=== PATIENT | female | born 1950 | race Hispanic/Latino ===

== ENCOUNTER 2017-08-28 05:57 | Emergency (ER) | payer MEDICARE ==
[2017-08-28] MEDS ORDERED: ASPIRIN 325 MG TABLET ONE (06:05)
[2017-08-28] MEDS ORDERED: NITROGLYCERIN 1GM/1 INCH PACKET TD ONE (06:05)
[2017-08-28 06:13] LABS: BASOPHILS % (AUTO) 0.8 % (0.0-5.0); EOSINOPHILS % (AUTO) 1.3 % (0.0-8.0); HEMATOCRIT 38.1 % (36-48); LYMPHOCYTES % (AUTO) 33.2 % (21.0-51.0); MEAN CORPUSCULAR HEMOGLOBIN 30.6 pg (27.0-33.0); MEAN CORPUSCULAR HGB CONC 33.6 g/dL (32.0-36.0); MEAN CORPUSCULAR VOLUME 90.9 fL (79-99); MONOCYTES % (AUTO) 10.8 % (3.0-13.0); NEUTROPHILS % (AUTO) 53.9 % (40.0-77.0); NUCLEATED RED BLOOD CELLS 0.1 % (0.0-0.19); PLATELET COUNT (AUTO) 220 K/uL (130-400); RED BLOOD CELL COUNT(AUTO) 4.19 MIL/uL (4.00-5.50); RED CELL DISTRIBUTION WIDTH 14.5 % (11.0-15.5); WHITE BLOOD COUNT (AUTO) 5.3 K/uL (4.8-10.8)
[2017-08-28] MEDS ORDERED: SODIUM CHLORIDE 0.9% 500ML 500 ML IV ONE (06:13)
[2017-08-28 06:44] LABS: B-TYPE NATRIURETIC PEPTIDE 50 pg/mL (0-100)
[2017-08-28] MEDS ORDERED: ALPRAZOLAM 0.25 MG TABLET ONE (06:59)
[2017-08-28 07:13] LABS: ALANINE AMINOTRANSFERASE 21 U/L (12-78); ALBUMIN 3.2 g/dL (3.5-5.0); ASPARTATE AMINOTRANSFERASE 23 U/L (10-37); BILIRUBIN,DIRECT < 0.1 mg/dL (0.0-0.3); BILIRUBIN,TOTAL 0.3 mg/dL (0.2-1.0); CARBON DIOXIDE 26 mmol/L (21-32); CHLORIDE 107 mmol/L (101-111); CREATINE KINASE, TOTAL 61 U/L (21-232); CREATININE 0.7 mg/dL (0.5-1.5); GLOMERULAR FILTR. RATE CALC 89 mL/min (>60); GLUCOSE,RANDOM 103 mg/dL (70-105); LIPASE 129 U/L (114-286); POTASSIUM 3.7 mmol/L (3.5-5.1); SODIUM SERUM 141 mmol/L (136-145); TOTAL PROTEIN, SERUM 7.1 g/dL (6.0-8.3); UREA NITROGEN, BLOOD 21 mg/dL (7-18)
== END 2017-08-28 07:28 | disposition home or self-care (01) ==
LOC: EDH 05:57
DX: R07.9 Chest pain, unspecified (principal); F41.9 Anxiety disorder, unspecified; I10 Essential (primary) hypertension; Z88.1 Allergy status to other antibiotic agents; Z88.8 Allergy status to other drugs, medicaments and biological substances
CPT/HCPCS: 36415; 71045; 80048; 80076; 82550; 83690; 83880; 84484; 85025; 93005; 96360; 99285; J7040

== ENCOUNTER → 2017-09-12 | Outpatient (CLI) | payer MEDICARE | END | disposition home or self-care (01) | LOC: SHCH 09:39 | PROVIDERS: ATTEND Internal Medicine Cardiovascular Disease | DX: I48.91 Unspecified atrial fibrillation (principal) | CPT/HCPCS: 93306 ==

== ENCOUNTER → 2017-12-13 | Outpatient (CLI) | payer MEDICARE ==
[~2017-12-13] MED LIST: IOPAMIDOL-370 100 ML VIAL IV ONE; IOPAMIDOL-370 75 ML VIAL IV ONE
== END | disposition home or self-care (01) ==
LOC: OIH 09:19
PROVIDERS: ATTEND Internal Medicine
DX: K44.9 Diaphragmatic hernia without obstruction or gangrene (principal); E27.9 Disorder of adrenal gland, unspecified
CPT/HCPCS: 74178; Q9967

== ENCOUNTER → 2018-08-21 | Outpatient (CLI) | payer MEDICARE | END | disposition home or self-care (01) | LOC: RAH 15:22 | PROVIDERS: ATTEND Nurse Practitioner Family | DX: M19.021 Primary osteoarthritis, right elbow (principal); M77.8 Other enthesopathies, not elsewhere classified | CPT/HCPCS: 73221 ==

== ENCOUNTER 2018-09-21 04:14 | Observation (INO) | payer MEDICARE ==
[2018-09-21 05:22] LABS: APPEARANCE,URINE Clear (CLEAR); BILIRUBIN,URINE Negative (NEGATIVE); COLOR,URINE Yellow (YELLOW); GLUCOSE, URINE (UA) Negative (NEGATIVE); KETONES,URINE Negative (NEGATIVE); LEUKOCYTE ESTERASE ,URINE Trace (NEGATIVE); NITRATE,URINE Negative (NEGATIVE); OCCULT BLOOD,URINE Negative (NEGATIVE); PROTEIN,URINE Negative (NEGATIVE)
[2018-09-21 05:24] LABS: BASOPHILS % (AUTO) 0.8 % (0.0-5.0); EOSINOPHILS % (AUTO) 2.9 % (0.0-8.0); HEMATOCRIT 35.4 % (36-48); LYMPHOCYTES % (AUTO) 37.6 % (21.0-51.0); MEAN CORPUSCULAR HEMOGLOBIN 30.3 pg (27.0-33.0); MEAN CORPUSCULAR HGB CONC 32.9 g/dL (32.0-36.0); MONOCYTES % (AUTO) 11.2 % (3.0-13.0); NEUTROPHILS % (AUTO) 47.5 % (40.0-77.0); PLATELET COUNT (AUTO) 180 K/uL (130-400); RED BLOOD CELL COUNT(AUTO) 3.85 MIL/uL (4.00-5.50); RED CELL DISTRIBUTION WIDTH 13.6 % (11.0-15.5)
[2018-09-21 05:30] LABS: RBC,URINE 0-1 /HPF (0-1)
[2018-09-21 05:31] LABS: BACTERIA,URINE Few /HPF (None Seen)
[2018-09-21 05:34] LABS: CREATININE 0.8 mg/dL (0.5-1.5); POTASSIUM 3.4 mmol/L (3.5-5.1)
[2018-09-21 05:37] LABS: INR 0.97 (0.85-1.15); PARTIAL THROMBOPLASTIN TIME 29.7 SEC (26.3-35.5); PROTHROMBIN TIME 10.2 SEC (9.6-11.6)
[2018-09-21 05:38] LABS: ALBUMIN 3.1 g/dL (3.5-5.0); BILIRUBIN,TOTAL 0.2 mg/dL (0.2-1.0); TOTAL PROTEIN, SERUM 6.8 g/dL (6.0-8.3)
[2018-09-21] MEDS ORDERED: SODIUM CHLORIDE 0.9% 1000ML 1,000 ML IV SCH (09:13)
[2018-09-21] MEDS ORDERED: ONDANSETRON HCL 4 MG/2 ML VIAL IV PRN (09:15)
[2018-09-21] MEDS ORDERED: LACTULOSE 20 GM/30 ML UDCUP PO PRN (09:15)
[2018-09-21] MEDS ORDERED: ACETAMINOPHEN 325 MG TAB PO PRN (09:15)
[2018-09-21] MEDS ORDERED: HYDRALAZINE HCL 20 MG/ML VIAL IV PRN (09:15)
[2018-09-21] MEDS ORDERED: DIPHENHYDRAMINE HCL 25 MG CAPSULE PO PRN (09:15)
[2018-09-21 09:59] LABS: HEMOGLOBIN A1C 7.2 % (4.0-6.0)
[2018-09-21 13:09] LABS: CREATINE KINASE, TOTAL 40 U/L (21-232); MYOGLOBIN 40 ng/mL (10-92); TROPONIN I < 0.04 ng/mL (0.00-0.06)
[2018-09-21] MEDS ORDERED: FAMOTIDINE 20MG TAB 20 MG TAB PO SCH (21:00)
== END 2018-09-21 14:23 | disposition home or self-care (01) ==
LOC: EDH 04:14 → EDHIP 09:13
PROVIDERS: ADMIT Internal Medicine; ATTEND Internal Medicine
DX: R00.2 Palpitations (principal); I48.0 Paroxysmal atrial fibrillation; R42 Dizziness and giddiness; D68.59 Other primary thrombophilia; E11.9 Type 2 diabetes mellitus without complications; E78.2 Mixed hyperlipidemia; F41.9 Anxiety disorder, unspecified; I10 Essential (primary) hypertension; J45.909 Unspecified asthma, uncomplicated; K21.9 Gastro-esophageal reflux disease without esophagitis; Z79.01 Long term (current) use of anticoagulants
CPT/HCPCS: 36415; 71045; 80053; 81001; 82550; 83036; 83690; 83874; 84443; 84484 ×2; 85025; 85610; 85730; 93005; 99284; G0378 ×5

== ENCOUNTER → 2018-11-21 | Outpatient (CLI) | payer MEDICARE | END | disposition home or self-care (01) | LOC: RAH 14:09 | PROVIDERS: ATTEND Physical Medicine & Rehabilitation | DX: M47.22 Other spondylosis with radiculopathy, cervical region (principal); M25.78 Osteophyte, vertebrae; J32.0 Chronic maxillary sinusitis | CPT/HCPCS: 72141 ==

== ENCOUNTER → 2019-05-17 | Outpatient (CLI) | payer MEDICARE | END | disposition home or self-care (01) | LOC: RAH 09:42 | PROVIDERS: ATTEND Obstetrics & Gynecology | DX: K44.9 Diaphragmatic hernia without obstruction or gangrene (principal) | CPT/HCPCS: 74176 ==

== ENCOUNTER 2019-06-10 10:49 | Emergency (ER) | payer MEDICARE ==
[2019-06-10] MEDS ORDERED: KETOROLAC TROMETHAMINE 30MG/ML ONE (11:25)
[2019-06-10] MEDS ORDERED: CYCLOBENZAPRINE HCL 10 MG TABLET ONE (11:26)
== END 2019-06-10 13:05 | disposition home or self-care (01) ==
LOC: EDH 10:49
DX: S83.91XA Sprain of unspecified site of right knee, initial encounter (principal); I10 Essential (primary) hypertension; E11.9 Type 2 diabetes mellitus without complications; E78.5 Hyperlipidemia, unspecified; Z98.51 Tubal ligation status; Z88.1 Allergy status to other antibiotic agents; Z88.8 Allergy status to other drugs, medicaments and biological substances; Z98.890 Other specified postprocedural states; W18.39XA Other fall on same level, initial encounter; Y93.01 Activity, walking, marching and hiking; Y92.89 Other specified places as the place of occurrence of the external cause; Y99.8 Other external cause status
CPT/HCPCS: 73562; 96374; 99284; J1885

== ENCOUNTER 2019-07-24 23:47 | Emergency (ER) | payer MEDICARE ==
[2019-07-25 00:40] LABS: BASOPHILS % (AUTO) 0.2 % (0.0-5.0); HEMATOCRIT 38.3 % (36-48); LYMPHOCYTES % (AUTO) 13.1 % (21.0-51.0); MEAN CORPUSCULAR HEMOGLOBIN 29.9 pg (27.0-33.0); MEAN CORPUSCULAR HGB CONC 32.1 g/dL (32.0-36.0); MONOCYTES % (AUTO) 1.2 % (3.0-13.0); NEUTROPHILS % (AUTO) 85.2 % (40.0-77.0); PLATELET COUNT (AUTO) 276 K/uL (130-400); RED BLOOD CELL COUNT(AUTO) 4.12 MIL/uL (4.00-5.50); RED CELL DISTRIBUTION WIDTH 12.9 % (11.0-15.5); WHITE BLOOD COUNT (AUTO) 6.7 K/uL (4.8-10.8)
[2019-07-25 01:04] LABS: CREATININE 0.8 mg/dL (0.5-1.5); POTASSIUM 3.7 mmol/L (3.5-5.1)
[2019-07-25 01:08] LABS: ALBUMIN 3.7 g/dL (3.5-5.0); BILIRUBIN,TOTAL 0.3 mg/dL (0.2-1.0); TOTAL PROTEIN, SERUM 8.1 g/dL (6.0-8.3)
== END 2019-07-25 02:40 | disposition home or self-care (01) ==
LOC: EDH 23:47
DX: R00.2 Palpitations (principal); I48.91 Unspecified atrial fibrillation; I10 Essential (primary) hypertension; E11.9 Type 2 diabetes mellitus without complications; E78.5 Hyperlipidemia, unspecified; F41.9 Anxiety disorder, unspecified; Z88.1 Allergy status to other antibiotic agents; Z88.8 Allergy status to other drugs, medicaments and biological substances; Z98.51 Tubal ligation status; Z98.890 Other specified postprocedural states; Z79.899 Other long term (current) drug therapy
CPT/HCPCS: 36415; 80053; 82550; 84484; 85025; 93005

== ENCOUNTER 2020-01-04 23:46 | Observation (INO) | payer MEDICARE ==
[~2020-01-04] VITALS: Ht 160 cm; Wt 101.2 kg
[~2020-01-04 23:46] MED LIST changes: +DILT180C86 PO; +FLEC50TA3 PO; -IOPAMIDOL-370 100 ML VIAL IV ONE; -IOPAMIDOL-370 75 ML VIAL IV ONE; +METF-526 PO
[2020-01-05 00:22] LABS: BASOPHILS % (AUTO) 0.3 % (0.0-5.0); EOSINOPHILS % (AUTO) 1.9 % (0.0-8.0); HEMATOCRIT 38.6 % (36-48); LYMPHOCYTES % (AUTO) 32.7 % (21.0-51.0); MEAN CORPUSCULAR HEMOGLOBIN 29.8 pg (27.0-33.0); MEAN CORPUSCULAR HGB CONC 32.4 g/dL (32.0-36.0); MEAN CORPUSCULAR VOLUME 91.9 fL (79-99); MONOCYTES % (AUTO) 10.1 % (3.0-13.0); NEUTROPHILS % (AUTO) 54.7 % (40.0-77.0); PLATELET COUNT (AUTO) 211 K/uL (130-400); RED CELL DISTRIBUTION WIDTH 13.2 % (11.0-15.5); WHITE BLOOD COUNT (AUTO) 7.4 K/uL (4.8-10.8)
[2020-01-05 00:29] LABS: INR 0.95 (0.85-1.15); PARTIAL THROMBOPLASTIN TIME 29.5 SEC (26.3-35.5); PROTHROMBIN TIME 10.3 SEC (9.6-11.6)
[2020-01-05 00:34] LABS: APPEARANCE,URINE Clear (CLEAR); BILIRUBIN,URINE Negative (NEGATIVE); COLOR,URINE Yellow (YELLOW); GLUCOSE, URINE (UA) Negative (NEGATIVE); KETONES,URINE Negative (NEGATIVE); LEUKOCYTE ESTERASE ,URINE Trace (NEGATIVE); NITRATE,URINE Negative (NEGATIVE); OCCULT BLOOD,URINE Negative (NEGATIVE); PROTEIN,URINE Negative (NEGATIVE); UROBILINOGEN,URINE 0.2 mg/dL (0.2-1.0)
[2020-01-05 00:40] LABS: B-TYPE NATRIURETIC PEPTIDE 70 pg/mL (0-100)
[2020-01-05 00:42] LABS: CREATININE 0.8 mg/dL (0.5-1.5); POTASSIUM 3.1 mmol/L (3.5-5.1)
[2020-01-05] MEDS ORDERED: ASPIRIN 325 MG TABLET ONE (00:43)
[2020-01-05 00:44] LABS: BACTERIA,URINE None Seen /HPF (None Seen); RBC,URINE 0-1 /HPF (0-1); WBC,URINE 0-1 /HPF (0-1)
[2020-01-05 00:46] LABS: ALBUMIN 3.6 g/dL (3.5-5.0); BILIRUBIN,TOTAL 0.3 mg/dL (0.2-1.0); TOTAL PROTEIN, SERUM 7.4 g/dL (6.0-8.3)
[2020-01-05] MEDS ORDERED: POTASSIUM BICARB/CIT AC 25 MEQ TABLET.EFF ONE (00:47)
[2020-01-05] MEDS: SODIUM CHLORIDE 0.9% 1000ML 1,000 ML IV SCH ×2 (02:43→16:03)
[2020-01-05] MEDS ORDERED: MORPHINE SULFATE 2 MG/ML 1ML SYG IV PRN (02:45)
[2020-01-05] MEDS ORDERED: ONDANSETRON HCL 4 MG/2 ML VIAL IV PRN (02:45)
[2020-01-05] MEDS ORDERED: ACETAMINOPHEN 325 MG TAB PO PRN ×2 (02:45)
[2020-01-05 03:20] LABS: HEMOGLOBIN A1C 6.8 % (4.0-6.0)
[2020-01-05 03:30] VITALS: BP 149/57
[2020-01-05] MEDS ORDERED: LORA10TA7 PO (03:44)
[2020-01-05] MEDS ORDERED: APIX5TAB PO (03:44)
[2020-01-05] MEDS ORDERED: POTASSIUM CHLORIDE 10MEQ/100ML 100 ML IV PRN (04:15)
[2020-01-05] MEDS ORDERED: LIDOCAINE HCL-MPF 1% 2ML VIAL IV PRN (04:15)
[2020-01-05] MEDS: CEFTRIAXONE SODIUM 1 GM IVP SCH ×2 (05:22→16:28)
[2020-01-05 08:00] VITALS: BP_SYST 114; BP_SYST 145; BP_DIAS 50; BP_DIAS 51
[2020-01-05] MEDS ORDERED: DILTIAZEM HCL 180 MG PO SCH (09:00)
[2020-01-05] MEDS ORDERED: FAMOTIDINE/PF 20 MG/2 ML VIAL IV SCH (09:00)
[2020-01-05] MEDS ORDERED: APIXABAN 5 MG TABLET PO SCH (09:00)
[2020-01-05] MEDS ORDERED: METF-910 PO (09:22)
[2020-01-05] MEDS ORDERED: OMEP40CA13 PO (09:22)
[2020-01-05] MEDS ORDERED: HYDR12.54 PO (09:22)
[2020-01-05] MEDS ORDERED: DILT180C89 PO (09:22)
[2020-01-05] MEDS ORDERED: SIMV-43 PO (09:22)
[2020-01-05] MEDS ORDERED: Flecainide Acetate PO (10:38)
[2020-01-05 11:00] VITALS: BP 114/50
[2020-01-05] MEDS ORDERED: POTA10CA44 PO (11:06)
[2020-01-05 16:00] VITALS: BP 132/45
[2020-01-05] MEDS ORDERED: POTASSIUM CHLORIDE 20 MEQ ERTAB PO ONE (16:19)
[2020-01-05] MEDS ORDERED: POTASSIUM CHLORIDE 20 MEQ ERTAB PO SCH (17:35)
[2020-01-05] MEDS ORDERED: FLECAINIDE ACETATE 100 MG TABLET PO SCH (21:00)
[2020-01-05] MEDS ORDERED: ATORVASTATIN CALCIUM 10 MG TABLET PO SCH (21:00)
[2020-01-06] MEDS ORDERED: DILTIAZEM HCL 180 MG CAP.SR.24H PO SCH (09:00)
== END 2020-01-05 18:20 | disposition home or self-care (01) ==
LOC: EDH 23:46 → INTOOBSV 01-05 02:43 → EDHIP 01-05 02:43 → 3DH 01-05 03:41
PROVIDERS: ADMIT Internal Medicine; ATTEND Internal Medicine
DX: R07.89 Other chest pain (principal); R00.2 Palpitations; N39.0 Urinary tract infection, site not specified; E87.6 Hypokalemia; I48.91 Unspecified atrial fibrillation; E11.9 Type 2 diabetes mellitus without complications; I10 Essential (primary) hypertension; E78.5 Hyperlipidemia, unspecified; J45.909 Unspecified asthma, uncomplicated; Z79.01 Long term (current) use of anticoagulants; H54.7 Unspecified visual loss; Z88.1 Allergy status to other antibiotic agents; Z88.8 Allergy status to other drugs, medicaments and biological substances; Z98.51 Tubal ligation status
CPT/HCPCS: 36415; 71045; 80053; 81001; 82550; 82948 ×3; 83036; 83690; 83735; 83880; 84145; 84484; 85025; 85610; 85730; 93005; 96374; 96375; 99284; A4600; G0378 ×15; J0696; J3490

== ENCOUNTER 2020-01-16 10:34 | Emergency (ER) | payer MEDICARE ==
[~2020-01-16 10:34] MED LIST changes: +APIX5TAB PO; -DILT180C86 PO; +DILT180C89 PO; -FLEC50TA3 PO; +Flecainide Acetate PO; +HYDR12.54 PO; +LORA10TA7 PO; -METF-526 PO; +METF-910 PO; +OMEP40CA13 PO; +POTA10CA44 PO; +SIMV-43 PO
[2020-01-16] MEDS ORDERED: HYDROCODONE/ACETAMINOPHEN 10/325 MG TAB ONE (11:14)
== END 2020-01-16 12:27 | disposition home or self-care (01) ==
LOC: EDH 10:34
DX: S80.02XA Contusion of left knee, initial encounter (principal); S80.01XA Contusion of right knee, initial encounter; S90.02XA Contusion of left ankle, initial encounter; S90.01XA Contusion of right ankle, initial encounter; S40.012A Contusion of left shoulder, initial encounter; E78.5 Hyperlipidemia, unspecified; I10 Essential (primary) hypertension; E11.9 Type 2 diabetes mellitus without complications; I48.91 Unspecified atrial fibrillation; Z88.1 Allergy status to other antibiotic agents; Z88.8 Allergy status to other drugs, medicaments and biological substances; Z98.51 Tubal ligation status; Z98.890 Other specified postprocedural states; W18.39XA Other fall on same level, initial encounter; Y93.01 Activity, walking, marching and hiking; Y92.89 Other specified places as the place of occurrence of the external cause; Y99.8 Other external cause status
CPT/HCPCS: 73060; 73560; 73590; 73610

== ENCOUNTER → 2020-05-16 | Outpatient (CLI) | payer MEDICARE | END | disposition home or self-care (01) | LOC: RAH 13:16 | PROVIDERS: ATTEND Podiatrist Foot & Ankle Surgery | DX: R60.0 Localized edema (principal); M25.572 Pain in left ankle and joints of left foot; M25.571 Pain in right ankle and joints of right foot | CPT/HCPCS: 73721 ==

== ENCOUNTER 2021-08-25 11:41 | Emergency (ER) | payer MEDICARE ==
[~2021-08-25] VITALS: Ht 152.4 cm; Wt 99.8 kg
[~2021-08-25 11:41] MED LIST changes: -OMEP40CA13 PO; +OMEP40CA21 PO
[2021-08-25] MEDS ORDERED: KETOROLAC 30MG VIAL (30MG/ML) IM ONE (12:30)
[2021-08-25] MEDS ORDERED: ACETAMINOPHEN 500 MG TABLET PO ONE (12:30)
[2021-08-25] MEDS ORDERED: ORPHENADRINE CITRATE 30 MG/ML ML IM ONE (12:30)
[2021-08-25 12:40] VITALS: BP 154/64
[2021-08-25 13:23] LABS: APPEARANCE,URINE Clear (CLEAR); BILIRUBIN,URINE Negative (NEGATIVE); COLOR,URINE Yellow (YELLOW); GLUCOSE, URINE (UA) Negative (NEGATIVE); KETONES,URINE Negative (NEGATIVE); LEUKOCYTE ESTERASE ,URINE Negative (NEGATIVE); NITRATE,URINE Negative (NEGATIVE); OCCULT BLOOD,URINE Negative (NEGATIVE); PROTEIN,URINE Negative (NEGATIVE); UROBILINOGEN,URINE 0.2 mg/dL (0.2-1.0)
[2021-08-25] MEDS ORDERED: ACET-66 PO (14:25)
[2021-08-25] MEDS ORDERED: ORPH100 PO (14:25)
== END 2021-08-25 15:02 | disposition home or self-care (01) ==
LOC: EDH 11:41
DX: M54.50 Low back pain, unspecified (principal); Z88.1 Allergy status to other antibiotic agents; Z79.899 Other long term (current) drug therapy; Z88.8 Allergy status to other drugs, medicaments and biological substances
CPT/HCPCS: 81003; 96372 ×2; 99284; J1885; J2360

== ENCOUNTER 2022-03-25 13:34 | Emergency (ER) | payer MEDICARE ==
[~2022-03-25] VITALS: Ht 152.4 cm; Wt 95.3 kg
[~2022-03-25 13:34] MED LIST changes: +ACET-66 PO; +ORPH100 PO
[2022-03-25] MEDS ORDERED: ACET-2247 PO (15:08)
[2022-03-25] MEDS ORDERED: ACETAMINOPHEN 500 MG TABLET PO ONE (15:30)
[2022-03-25 15:52] VITALS: BP 142/72
== END 2022-03-25 15:55 | disposition home or self-care (01) ==
LOC: EDH 13:34
DX: S80.02XA Contusion of left knee, initial encounter (principal); S80.01XA Contusion of right knee, initial encounter; I10 Essential (primary) hypertension; I25.10 Atherosclerotic heart disease of native coronary artery without angina pectoris; I48.91 Unspecified atrial fibrillation; K21.9 Gastro-esophageal reflux disease without esophagitis; Z88.1 Allergy status to other antibiotic agents; Z79.899 Other long term (current) drug therapy; Z79.01 Long term (current) use of anticoagulants; W18.39XA Other fall on same level, initial encounter; Y93.89 Activity, other specified; Y92.89 Other specified places as the place of occurrence of the external cause; Y99.8 Other external cause status

== ENCOUNTER → 2022-07-24 | Outpatient (CLI) | payer MEDICARE ==
[~2022-07-24] MED LIST changes: +ACET-2247 PO; -POTA10CA44 PO; +POTA10CA45 PO
== END | disposition home or self-care (01) ==
LOC: SHCH 13:10
PROVIDERS: ATTEND Internal Medicine Cardiovascular Disease
DX: R00.2 Palpitations (principal)
CPT/HCPCS: 93306

== ENCOUNTER → 2023-11-15 | Outpatient (CLI) | payer MEDICARE ==
[~2023-11-15] MED LIST changes: -ACET-2247 PO; -ACET-66 PO; -DILT180C89 PO; +DOCU-116 PO; -Flecainide Acetate PO; -HYDR12.54 PO; +LOSA1TAB37 PO; +NEBI5TAB11 PO; -ORPH100 PO; -POTA10CA45 PO; +PRAV20TA4 PO; -SIMV-43 PO; +TRAM50TA4 PO
== END | disposition home or self-care (01) ==
LOC: SHCH 09:44
PROVIDERS: ATTEND Internal Medicine Cardiovascular Disease
DX: I65.23 Occlusion and stenosis of bilateral carotid arteries (principal); R09.89 Other specified symptoms and signs involving the circulatory and respiratory systems
CPT/HCPCS: 93880

== ENCOUNTER → 2024-12-17 | Outpatient (CLI) | payer MEDICARE ==
[~2024-12-17] MED LIST changes: -NEBI5TAB11 PO; +NEBI5TAB12 PO
--- NOTE | 2024-12-17 14:33 | HMCIMG ---
Carotid Duplex and color-flow Doppler bilateral Clinical Information: NEW DAILY PERSISTANT HEADACHE Comparison: None Findings: Mild right common carotid artery bifurcation plaque is seen. No hemodynamically significant stenosis noted. Left Internal Carotid Artery Peak Systolic Velocity (PSV), Left Internal Carotid to Common Carotid Artery peak systolic velocity ratio, Right Internal Carotid Artery Peak Systolic Velocity (PSV) and Right Internal Carotid to Common Carotid Artery peak systolic velocity ratio, are all within normal limits. External carotid artery velocities normal bilaterally. Bilateral vertebral arteries show normal velocities and waveforms with antegrade flow. Impression: No hemodynamically significant stenosis noted. NASCET CRITERIA. The degree of internal carotid artery stenosis is based on NASCET criteria. Normal is no stenosis. Mild is less than 50% stenosis. Moderate is 50-69% stenosis. Severe is 70% to 99% stenosis. Total occlusion is no detectable patent lumen.
--- NOTE | 2024-12-17 14:39 | HMCIMG ---
Exam Type: CT HEAD/BRAIN W/O CONTRAST Clinical Information: New daily persistent headache (NDPH) Comparison: None CT Dose Index (CTDI): 57.33 mGy Dose Length Product (DLP): 956.79 total mGy-cm Findings: The examination is unremarkable. Garibay-white matter junction is preserved. No intra or extra axial lesions or fluid collections are seen. Specifically, garibay and white matter are normal in signal characteristics with normal caliber of ventricles and periventricular cisterns with no evidence of intra or or extra-axial hemorrhage, lacunar infarct, or major territorial infarct, mass, or other abnormality. There are no infarcts. There are no hemorrhages. Periventricular white matter locations are preserved. The orbital contents and structures of the posterior fossa are intact. Impression: Normal CT of the head. This study was performed using dose reduction techniques to include automated exposure control and/or adjustment of the mA and/or kV according to patient size.
== END | disposition home or self-care (01) ==
LOC: RAH 13:37
PROVIDERS: ATTEND Internal Medicine Cardiovascular Disease
DX: G44.52 New daily persistent headache (NDPH) (principal); R09.89 Other specified symptoms and signs involving the circulatory and respiratory systems
CPT/HCPCS: 70450; 93880

== ENCOUNTER 2025-02-06 11:39 | Observation (INO) | payer MEDICARE ==
[~2025-02-06] VITALS: Ht 162.6 cm; Wt 89.8 kg
[~2025-02-06 11:39] MED LIST changes: -PRAV20TA4 PO; +PRAV20TA59 PO
--- NOTE | 2025-02-06 12:01 | EKG ---
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
[2025-02-06 12:17] LABS: BASOPHILS # (AUTO) 0.02 K/uL (0.00-0.20); BASOPHILS % (AUTO) 0.4 % (0.0-5.0); EOSINOPHILS # (AUTO) 0.05 K/uL (0.00-0.70); HEMATOCRIT 35.8 % (36-48); IMMATURE GRANULOCYTE ABSOLUTE 0.02 K/uL (0-1); LYMPHOCYTES # (AUTO) 1.1 K/uL (1.0-4.8); LYMPHOCYTES % (AUTO) 21.9 % (21.0-51.0); MEAN CORPUSCULAR HGB CONC 32.1 g/dL (32.0-36.0); MEAN CORPUSCULAR VOLUME 90.2 fL (79-99); MONOCYTES # (AUTO) 0.3 K/uL (0.1-1.0); MONOCYTES % (AUTO) 6.7 % (3.0-13.0); NEUTROPHILS # (AUTO) 3.3 K/uL (1.8-7.7); NEUTROPHILS % (AUTO) 69.6 % (40.0-77.0); PLATELET COUNT (AUTO) 189 K/uL (130-400); RED BLOOD CELL COUNT(AUTO) 3.97 MIL/uL (4.00-5.50); RED CELL DISTRIBUTION WIDTH 13.5 % (11.0-15.5); WHITE BLOOD COUNT (AUTO) 4.8 K/uL (4.8-10.8)
[2025-02-06 12:29] LABS: CREATININE 0.6 mg/dL (0.5-1.0); POTASSIUM 3.4 mmol/L (3.5-5.1)
[2025-02-06 12:34] LABS: ALBUMIN 3.4 g/dL (3.5-5.0); BILIRUBIN,TOTAL 0.4 mg/dL (0.2-1.0); TOTAL PROTEIN, SERUM 7.3 g/dL (6.0-8.3)
--- NOTE | 2025-02-06 12:42 | ERN ---
General Chief Complaint: Abdominal Pain Stated Complaint: ABDOMINAL PAIN Time Seen by MD: 11:42 Source: patient History of Present Illness Initial Comments Patient is a 74-year-old female coming in to be evaluated for abdominal pain. Patient states that she was having an endoscopy and colonoscopy performed shortly after that she started having abdominal pain. 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 Allergies: Coded Allergies: atenolol (Unverified Allergy, Unknown, 06/10/19) ciprofloxacin (Unverified Allergy, Unknown, 06/10/19) levofloxacin (Unverified Allergy, Unknown, 06/10/19) midazolam (Unverified Allergy, Unknown, 06/10/19) omeprazole (Unverified Allergy, Unknown, 01/11/20) red dye (Unverified Allergy, Unknown, 04/28/23) Home Meds Active Scripts Tramadol Hcl (Tramadol HCl) 50 Mg Tablet, 50 MG PO Q6HPRN PRN for PAIN, #30 TAB 0 Refills Prov:DRE CORTEZ MD 05/03/23 Docusate Sodium (Colace) 100 Mg Capsule, 100 MG PO BID, #30 CAP 0 Refills Prov:DRE CORTEZ MD 05/03/23 Reported Medications Pravastatin Sodium (Pravastatin Sodium) 20 Mg Tablet, 40 MG PO HS, TAB 04/28/23 Losartan/Hydrochlorothiazide (Losartan-Hctz 50-12.5 mg Tab) 1 Each Tablet, 0.5 EACH PO HS, TAB 04/28/23 Losartan/Hydrochlorothiazide (Losartan-Hctz 50-12.5 mg Tab) 1 Each Tablet, 1 EACH PO AM, TAB 04/28/23 Nebivolol HCl (Nebivolol HCl) 5 Mg Tablet, 2.5 MG PO HS, TAB 04/28/23 Nebivolol HCl (Nebivolol HCl) 5 Mg Tablet, 5 TAB PO AM 04/28/23 Omeprazole (Omeprazole) 40 Mg Capsule.dr, 40 MG PO BID 01/05/20 Metformin HCl (Metformin HCl ER) 500 Mg Tab.er.24h, 500 MG PO BID 01/05/20 Loratadine (Claritin) 10 Mg Tab, 10 MG PO AM, TAB 01/05/20 Apixaban (Eliquis) 5 Mg Tablet, 5 MG PO BID, TAB 01/05/20 Past Medical History Past Medical History: A-Fib, CAD, GERD, High Cholesterol, Hypertension Medical History Other: TACHYCARDIA,, VALVULAR INSUFFICENCY,R ADRENAL GLAND MASS,MALIGNANT HYPERTHE Past Surgical History: Cholecystectomy, Other, BTL Surgical History Other: CORONARY ABLATION W LOOP RECORDER, R SHOULDER, L KNEE Family History Family History: Negative Social History Social History: Negative ROS Dictation CONSTITUTIONAL: No chills, no fever, no weakness, no diaphoresis, no malaise. HEAD/FACE: No signs of trauma. EENT: No eye pain, no blurred vision, no tearing, no double vision, no ear pain, no ear discharge, no nose pain, no nasal congestion, no throat pain, no throat swelling, no mouth pain. RESPIRATORY: No cough, no orthopnea, no SOB, no stridor, no wheezing. CARDIOVASCULAR: No chest pain, no edema, no palpitations, no syncope. GASTROINTESTINAL/ABDOMINAL: abdominal pain, no constipation, no diarrhea, no nausea, no vomiting. GENITOURINARY: No abnormal discharge, no dysuria, no frequent urination, no hematuria. No complaints of pain in the genitals. MUSCULOSKELETAL: No back pain, no gout, no joint pain, no joint swelling, no muscle pain, no muscle stiffness, no neck pain. INTEGUMENTARY: No change in color, no change in hair/nails, no dryness, no lesion, no lumps, no rash. NEUROLOGICAL/PSYCH: No anxiety, not depressed, no emotional problem, no head ache, no numbness, no pre-existing deficit, no history of seizures, no tremors, no weakness. HEMATOLOGIC/LYMPHATIC: Not anemic, no history of blood clots, no apparent bleeding, no bruising, glands not swollen. All Systems Negative, Except as Noted. Physical Exam Physical Exam Dictation VITAL SIGNS: Reviewed. GENERAL APPEARANCE: Alert, oriented x3, no acute distress, obese. HEAD AND FACE: Non-traumatic. EYES: PERRL, pink conjunctivas, eyelid no trauma, anterior chamber clear. EARS: Pinnas intact and no signs of trauma or erythema. Ear canals clear and no discharge. TMs no erythema. NOSE: No discharge, no bleeding. OROPHARYNX: Mouth normal, teeth no caries, tongue pink. Pharynx clear, no erythema. Tonsils no exudates, no abscesses noted. Mucous membrane moist. NECK: Supple, non-tender, no thyromegaly, no masses, no JVD, no bruits. BREAST: Deferred. CHEST: No tenderness, no crepitus, no paradoxical movement, no retractions. LUNGS: Clear, well-ventilated, symmetric, no rales, no wheezing, no rhonchi, no stridor, good breath sounds bilaterally. HEART: Regular rate, regular rhythm, no murmur, no gallops. VASCULAR: No peripheral edema. ABDOMEN: Soft, positive bowel sounds, nondistended, no guarding, nontender, no rebound, no masses no hepatomegaly, no splenomegaly, no Stevenson's sign, no hernias. RECTAL: Deferred. GENITAL: Deferred. NEUROLOGICAL: Normal speech, gross motor function intact, gross sensory function intact. MUSCULOSKELETAL: Neck nontender, full range of motion, back nontender, full range of motion. EXTREMITIES: Nontender, full range of motion. SKIN: Color pink, dry, no turgor, no rash, no lacerations, no abrasions, no contusions. LYMPHATICS: Deferred. Results Laboratory and Microbiology Lab and Micro Result Laboratory Tests Test 02/06/25 12:10 02/06/25 12:40 White Blood Count 4.8 K/uL (4.8-10.8) Red Blood Count 3.97 MIL/uL (4.00-5.50) L Hemoglobin 11.5 g/dL (12.0-16.0) L Hematocrit 35.8 % (36-48) L Mean Corpuscular Volume 90.2 fL (79-99) Mean Corpuscular Hemoglobin 29.0 pg (27.0-33.0) Mean Corpuscular Hemoglobin Concent 32.1 g/dL (32.0-36.0) Red Cell Distribution Width 13.5 % (11.0-15.5) Platelet Count 189 K/uL (130-400) Mean Platelet Volume 11.5 fL (7.5-10.5) H Immature Granulocyte % (Auto) 0.4 % (0-1) Neutrophils (%) (Auto) 69.6 % (40.0-77.0) Lymphocytes (%) (Auto) 21.9 % (21.0-51.0) Monocytes (%) (Auto) 6.7 % (3.0-13.0) Eosinophils (%) (Auto) 1.0 % (0.0-8.0) Basophils (%) (Auto) 0.4 % (0.0-5.0) Neutrophils # (Auto) 3.3 K/uL (1.8-7.7) Lymphocytes # (Auto) 1.1 K/uL (1.0-4.8) Monocytes # (Auto) 0.3 K/uL (0.1-1.0) Eosinophils # (Auto) 0.05 K/uL (0.00-0.70) Basophils # (Auto) 0.02 K/uL (0.00-0.20) Absolute Immature Granulocyte (auto 0.02 K/uL (0-1) Nucleated Red Blood Cells 0.0 % (0.0-0.19) Sodium Level 140 mmol/L (136-145) Potassium Level 3.4 mmol/L (3.5-5.1) L Chloride Level 103 mmol/L (101-111) Carbon Dioxide Level 30 mmol/L (21-32) Blood Urea Nitrogen 9 mg/dL (7-18) Creatinine 0.6 mg/dL (0.5-1.0) Glomerular Filtration Rate Calc 94 mL/min (>90) Random Glucose 136 mg/dL (70-105) H Total Calcium 9.2 mg/dL (8.5-10.1) Total Bilirubin 0.4 mg/dL (0.2-1.0) Aspartate Amino Transf (AST/SGOT) 23 U/L (10-37) Alanine Aminotransferase (ALT/SGPT) 22 U/L (12-78) Alkaline Phosphatase 125 U/L (50-136) Troponin I High Sensitivity 11 ng/L (4-50) Total Protein 7.3 g/dL (6.0-8.3) Albumin 3.4 g/dL (3.5-5.0) L Lipase 26 U/L (16-77) Urine Color LIGHT-YELLOW (YELLOW) Urine Appearance CLEAR (CLEAR) Urine pH 5.5 (5.0-8.0) Urine Specific [place] 1.013 (1.001-1.031) Urine Protein NEGATIVE mg/dL (NEGATIVE) Urine Glucose (UA) NEGATIVE mg/dL (NEGATIVE) Urine Ketones 10 mg/dL (NEGATIVE) H Urine Occult Blood NEGATIVE (NEGATIVE) Urine Nitrate NEGATIVE (NEGATIVE) Urine Bilirubin NEGATIVE mg/dL (NEGATIVE) Urine Urobilinogen 0.2 mg/dL (0.2-1.0) Urine Leukocyte Esterase NEGATIVE Brian/uL Urine RBC 0-1 /HPF (0-1) Urine WBC 0-1 /HPF (0-1) Urine Bacteria None Seen /HPF (None Seen) Labs Reviewed?: Yes EKG/XRAY/US/CT/MRI EKG Comment 02/06/2025 time 11:57 a.m. Ventricular rate 60 Sinus rhythm [place] [address] wave elevation or depression MDM MDM: Differential diagnosis: Status post endoscopy, abdominal pain, medication side effect, Rationale: Tests considered and ordered secondary to shared decision making include: labs, ECG and radiology Previous outside records reviewed: Old ER visits. Risk of complication and/or morbidity or mortality of patient management: None Medications-Per medication reconciliation Need for hospitalization: Patient does meet criteria for hospitalization. Need for emergency major/minor surgery: No There are no social concerns with this patient. Prescription drug management Prescriptions will include symptomatic care Patient's prior external medical records from other ER visits were reviewed by me as indicated. Prior testing and results from previous visits were reviewed. Prior tests were taken into account with medical decision making and resource utilization, independent historian/historians were used to obtain complete medical history. I independently interpreted the test that were performed, results were reviewed by me and considered findings on radiology if ordered. Medical management and examination interpretation discussions were had by me with other qualified healthcare professionals as indicated for the patient's care. 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 Laboratory workup including CT was negative but due to the current presentation and procedure performed patient will be admitted for observation. patient has been admitted under the care of Dr. Simmons for ongoing management ED Course Orders Procedure Category Date Status Time Cbc With Differential LAB 02/06/25 Complete 11:47 Comprehensive LAB 02/06/25 Complete Metabolic Panel 11:47 Troponin I High LAB 02/06/25 Complete Sensitivity 11:47 Urinalysis Profile LAB 02/06/25 Complete 11:47 12 Lead Ekg Tracing- EKG 02/06/25 Complete Technical 11:47 Lipase LAB 02/06/25 Complete 11:47 Iohexol (Omnipaque) PHA 02/06/25 Complete 12:49 Ct Abdomen/Pelvis W/O CT 02/06/25 Resulted Contrast 12:59 Ondansetron 4mg Inj PHA 02/06/25 In Process (Zofran 4mg Inj) 14:00 Morphine 4mg Syg PHA 02/06/25 Logged (Morphine 4mg Syg) 14:00 Current Medications Medications (Trade) Dose Ordered Sig/Dioni Route PRN Reason Start Time Stop Time Status Last Admin Dose Admin Iohexol (Omnipaque) 35,000 mg STK-MED ONCE IV 02/06/25 12:49 02/06/25 12:50 DC Morphine Sulfate (morPHINE 4MG SYG) 4 mg ONCE ONCE IVP 02/06/25 14:00 02/06/25 14:01 Ondansetron HCl (zoFRAN 4MG INJ) 4 mg ONCE ONCE IVP 02/06/25 14:00 02/06/25 14:01 Vital Signs Date Time Temp Pulse Resp B/P (MAP) Pulse Ox O2 Delivery O2 Flow Rate FiO2 02/06/25 12:02 98.1 61 17 133/67 94 Room Air* 0 21 02/06/25 11:50 98.1 61 12 133/67 94 Room Air 0 DX & DISP Disposition: Inpatient Decision to Admit Time: 14:02 Departure Impression: Primary Impression: Abdominal pain Additional Impression: Status post endoscopy Condition: Stable Referrals: SHANNON SIMMONS MD (PCP) DUYEN BLISS MD Feb 06, 2025 12:42
[2025-02-06 12:44] LABS: APPEARANCE,URINE CLEAR (CLEAR); BILIRUBIN,URINE NEGATIVE (NEGATIVE); COLOR,URINE LIGHT-YELLOW (YELLOW); GLUCOSE, URINE (UA) NEGATIVE (NEGATIVE); KETONES,URINE 10 mg/dL (NEGATIVE); LEUKOCYTE ESTERASE ,URINE NEGATIVE Leu/uL (NEGATIVE); NITRATE,URINE NEGATIVE (NEGATIVE); OCCULT BLOOD,URINE NEGATIVE (NEGATIVE); PH,URINE 5.5 (5.0-8.0); PROTEIN,URINE NEGATIVE (NEGATIVE); UROBILINOGEN,URINE 0.2 mg/dL (0.2-1.0)
[2025-02-06] MEDS ORDERED: IOHEXOL 350 MG/ML 100ML INFUS..BTL IV ONE (12:49)
--- NOTE | 2025-02-06 13:10 | NUR ---
PT REFUSED CT W/CONT , DR BLISS AWARE
[2025-02-06 13:22] LABS: ADD UA MICROSCOPIC YES
[2025-02-06 13:35] LABS: BACTERIA,URINE None Seen /HPF (None Seen); MUCUS,URINE Rare LPF (None Seen); RBC,URINE 0-1 /HPF (0-1); WBC,URINE 0-1 /HPF (0-1)
--- NOTE | 2025-02-06 13:38 | HMCIMG ---
CT ABDOMEN/PELVIS W/O CONTRAST HISTORY: Abdominal pain COMPARISON: 05/17/2019 TECHNIQUE: Multiple sequential axial images of the abdomen and pelvis were obtained from the dome of the diaphragm through symphysis pubis. Patient was not given contrast through intravenous route. Oral contrast was not given. FINDINGS: No pleural effusion is seen bilaterally. There is no evidence of parenchymal disease or pulmonary nodule of the visualized lower lungs. Degenerative changes of the thoracolumbar spine are present. The heart is not enlarged. Moderate sized hernia is seen. Post cholecystectomy changes are seen. The liver, spleen, adrenal glands and pancreas are unremarkable. There is no evidence of hydronephrosis bilaterally. No evidence of renal stone is seen. Fecal material is seen in the colon. There are normal size retroperitoneal and mesenteric lymph nodes. No ascites is seen. No CT evidence of acute appendicitis is seen. There is air-filled colon. Pelvic sidewalls are symmetric bilaterally. Bladder is well distended without wall thickening. IMPRESSION: 1. No acute findings. CT was performed with one or more following dose reduction techniques: automated exposure control, adjustment of the mA and kv according to patient's size, or use of a iterative reconstruction technique.
[2025-02-06] MEDS: ondanSETRON 4MG INJ IVP ONE (14:05)
[2025-02-06] MEDS: morPHINE 4 MG SYG IVP ONE (14:05)
[2025-02-06] MEDS ORDERED: morPHINE 4 MG SYG IVP PRN (14:30)
[2025-02-06] MEDS ORDERED: ondanSETRON 4MG INJ IVP PRN (14:30)
--- NOTE | 2025-02-06 15:01 | NUR ---
NO ANSWER FOR REPORT
--- NOTE | 2025-02-06 15:33 | NUR ---
REPORT GIVEN TO GABRIELA LOU RM 309, GABRIELA CALLED BACK AND STATED NO BED IN RM, WILL CALL BACK WHEN BED READY
--- NOTE | 2025-02-06 15:38 | NUR ---
DCP: HOME Pt currently lives with panchito Alegre [phone] in their home. Pt does not report any insecurities with food, long term, and/or utilities. Pt does have a wheelchair and walking stick that she uses to ambulate. Pt does not have home health or provider services at this time. Pt states that she is interested in any program that will assist her in getting any type of "help with the stuff at home". SW placed a referral to [facility]. PCP is Dr. Mickey Cole and uses [facility] for any RX needs. At [place] pt will go home and family will help with transportation. Addendum: 02/06/25 at 1548 by KARAN KATE SS Amended: Links added.
[2025-02-06 16:50] VITALS: BP 135/53; PULSE 57; RESP 18; TEMP 98.1
[2025-02-06] MEDS ORDERED: CETI-89 PO (17:49)
[2025-02-06 17:50] VITALS: O2SAT 97
[2025-02-06 20:00] VITALS: BP 122/56; PULSE 58; RESP 17; TEMP 98.4
[2025-02-06 20:20] VITALS: O2SAT 99
[2025-02-06] MEDS: metFORmin HCL 500 MG TAB.SR.24H PO SCH (21:35)
[2025-02-06] MEDS: ceTIRIzine HCL 5 MG TABLET PO SCH (21:35)
[2025-02-06] MEDS: atorVAStatin 10 MG TABLET PO SCH (21:36)
[2025-02-07] VITALS: BP 110/54; PULSE 62; RESP 17; TEMP 98.4
[2025-02-07 04:00] VITALS: BP 150/46; PULSE 57; RESP 17; TEMP 98.1
[2025-02-07 04:23] LABS: BASOPHILS # (AUTO) 0.02 K/uL (0.00-0.20); BASOPHILS % (AUTO) 0.4 % (0.0-5.0); EOSINOPHILS # (AUTO) 0.11 K/uL (0.00-0.70); HEMATOCRIT 34.1 % (36-48); IMMATURE GRANULOCYTE ABSOLUTE 0.01 K/uL (0-1); LYMPHOCYTES # (AUTO) 2.1 K/uL (1.0-4.8); LYMPHOCYTES % (AUTO) 38.1 % (21.0-51.0); MEAN CORPUSCULAR HEMOGLOBIN 29.2 pg (27.0-33.0); MEAN CORPUSCULAR VOLUME 91.4 fL (79-99); MONOCYTES # (AUTO) 0.6 K/uL (0.1-1.0); MONOCYTES % (AUTO) 10.1 % (3.0-13.0); NEUTROPHILS # (AUTO) 2.7 K/uL (1.8-7.7); NEUTROPHILS % (AUTO) 49.2 % (40.0-77.0); PLATELET COUNT (AUTO) 182 K/uL (130-400); RED BLOOD CELL COUNT(AUTO) 3.73 MIL/uL (4.00-5.50); RED CELL DISTRIBUTION WIDTH 13.6 % (11.0-15.5); WHITE BLOOD COUNT (AUTO) 5.4 K/uL (4.8-10.8)
[2025-02-07 04:44] LABS: BILIRUBIN,TOTAL 0.4 mg/dL (0.2-1.0); CREATININE 0.5 mg/dL (0.5-1.0); POTASSIUM 3.4 mmol/L (3.5-5.1); TOTAL PROTEIN, SERUM 6.7 g/dL (6.0-8.3)
[2025-02-07 07:36] VITALS: BP 135/57; PULSE 57; RESP 18; TEMP 97.5
[2025-02-07 08:00] VITALS: O2SAT 97
[2025-02-07] MEDS: LOSARTAN/HYDROCHLOROTHIAZIDE 50-12.5MG TABLET PO SCH (10:37)
[2025-02-07] MEDS: PANTOPrazole 40 MG TAB DR PO SCH (10:37)
[2025-02-07 11:16] VITALS: BP 131/58; PULSE 53; RESP 18; TEMP 98
--- NOTE | 2025-02-07 13:39 | HP ---
HISTORY OF PRESENT ILLNESS: The patient was sent to the Emergency Room from Dr. Zhu's office after she developed abdominal pain and change in mental status post colonoscopy. ALLERGIES: ATENOLOL, CIPROFLOXACIN, LEVOFLOXACIN, MIDAZOLAM, OMEPRAZOLE. MEDICATIONS: Include metformin, nebivolol, losartan, pravastatin, Eliquis, and tramadol. PAST MEDICAL HISTORY: Type 2 diabetes, hypertension, dyslipidemia, gastritis, atrial fibrillation, chronic anticoagulation. REVIEW OF SYSTEMS: Had no fever, chills, seizure, loss of consciousness. No chest pain, palpitations. No cough, wheezing or rhonchi. No nausea, vomiting, diarrhea. An ill-defined diffuse abdominal pain. No nausea or vomiting. No hematemesis, melena, hematuria, or rectal bleeding. No paresis, paresthesia. No hallucinations or delusions. No suicidal ideation. PHYSICAL EXAMINATION: GENERAL: She is currently awake, alert, oriented to person, time, place, not in distress. VITAL SIGNS: Vital signs in the chart. HEENT: Normocephalic, atraumatic. LUNGS: Clear to auscultation. HEART: S1 and S2 are distant. ABDOMEN: Soft and nontender. No masses. EXTREMITIES: No clubbing, cyanosis. No edema. NEUROLOGIC: Cranial nerves II through XII grossly preserved. LABORATORY DATA: On admission in the Emergency Room; WBC count 4.8, hemoglobin 11.5, platelets 189. Sodium 140, potassium 3.4, BUN 9, creatinine 0.6, total bilirubin 0.4, troponin was 11, albumin 3.4. Urinalysis within normal limits. EKG without any ST elevations. CT scan of the abdomen was reported with no evidence of any intraabdominal air. No acute findings. ASSESSMENT AND PLAN: Abdominal pain post procedure. The patient was sent from Dr. Zhu's office for observation. We will continue to monitor. So far, results of tests are negative. The patient is feeling improved. We will have consultation with Dr. Zhu and the patient might be able to be discharged once she is cleared by him. Type 2 diabetes, hypertension, and dyslipidemia. Resume home medications. Anticoagulation: We are going to hold until after discharge to restart. TID: [id number] RECEIPT: [id number]
[2025-02-07 15:55] VITALS: BP 135/55; PULSE 52; RESP 18; TEMP 98.1
[2025-02-07] MEDS: PoTASSium chloRIDE 20MEQ ER 20 MEQ ERTAB PO ONE (16:30)
--- NOTE | 2025-02-07 17:12 | NUR ---
Provider Notification Dr. Zhu has cleared the patient. Per Dr. Cole's H&P, patient may be discharged once cleared. Called Dr. Cole's office. Per answering service, Dr. Moore is now security and privacy consultant since it is after hours. Dr. Moore has been paged. Pending call back.
--- NOTE | 2025-02-07 18:53 | CONS ---
GASTROENTEROLOGY CONSULTATION REFERRING PHYSICIAN: Shannon Cole MD REASON FOR CONSULTATION: Generalized abdominal pain. HISTORY OF PRESENT ILLNESS: The patient is a 74-year-old female with history of hypertension, hyperlipidemia, diabetes mellitus, CAD, prior myocardial infarction, atrial fibrillation with tachycardia and valvular insufficiency, also history of fibrocystic breast disease, right adrenal gland mass, and malignant hypothermia, who was admitted with generalized abdominal pain after undergoing EGD and colonoscopy biopsy. The patient had epigastric pain and left lower quadrant abdominal pain on the day of presentation and prior to that and was evaluated and on the day of presentation, she underwent EGD with biopsy of esophagus, stomach and duodenum, which showed esophagitis, gastritis, and normal-appearing duodenal mucosa at the time of endoscopy. The patient then had a colonoscopy with removal of few colon polyps by biopsy technique. After her procedure in the postop area, the patient began complaining of generalized abdominal pain, but no nausea, vomiting, melena, hematochezia, or diarrhea. Her blood pressure was normal, heart rate was normal, and she had no fever. She reported she had a small episode of chill when she woke up. After that, she had no documented chills. She was transported by ambulance to the Emergency Room. On presentation to hospital, she underwent a CT scan of the abdomen and pelvis. This revealed no free air or any evidence of pneumatosis intestinalis. The abdominal exam was benign also at that time except for mild epigastric tenderness. She had no evidence of rebound tenderness or guarding. The patient was admitted for further evaluation and management since she had episode of chills. She also was noted to be anemic. ALLERGIES: THE PATIENT IS ALLERGIC TO MULTIPLE MEDICATIONS. THESE INCLUDE FLEXERIL, VERSED, CIPRO, LEVAQUIN, ATENOLOL, DEXILANT, AND PER THE PATIENT, ANESTHESIA HAS INCREASED SEDATIVE EFFECT ON HER. MEDICATIONS: Potassium chloride, pantoprazole, hydrochlorothiazide/losartan, atorvastatin, cetirizine, metformin, ondansetron and morphine. PAST MEDICAL AND PAST SURGICAL HISTORY: Diabetes mellitus, hyperlipidemia, coronary artery disease, hypertension, myocardial infarction, atrial fibrillation with tachycardia, valvular insufficiency, fatty liver, fibrocystic breast disease, right adrenal gland mass, malignant hypothermia, diverticulitis. The patient also has a history of colon polyps and gastritis. She has undergone bilateral tubal ligation, right shoulder surgery, left knee surgery, suprapubic catheter placement, cardiac ablation, and laparoscopic cholecystectomy. SOCIAL HISTORY: No alcohol consumption. No history of tobacco use or illicit drug use. FAMILY HISTORY: Significant for hypertension, diabetes, hyperlipidemia, coronary artery disease, myocardial infarction, breast cancer, but no colon cancer, stomach cancer, esophageal disorders, IBD, CVA. REVIEW OF SYSTEMS: CONSTITUTIONAL: The patient reports today abdominal pain has subsided. She has no nausea, vomiting, melena, hematochezia, fever, or chills. OPHTHALMOLOGY: No recent vision change, eye pain, periorbital swelling, redness or drainage. DERMATOLOGY: No rash, bruise, or excessive dry skin. ENT: No ear pain, tinnitus, hearing loss, nasal congestion, rhinorrhea, sore throat, or voice change. RESPIRATORY: No wheezes, rhonchi, epistaxis, chest congestion, or cough. CARDIOVASCULAR: No chest pain, palpitations, or leg swelling. GENITOURINARY: No dysuria, hematuria, urgency or frequency. GASTROINTESTINAL: No abdominal pain, nausea, vomiting, melena, or hematochezia. HEMATOLOGY/LYMPHATICS: Denies any inherited bleeding, easy bruising, swelling, tender or palpable lymph nodes. ENDOCRINOLOGY: She has history of diabetes mellitus, hyperlipidemia, but no documented thyroid disease. MUSCULOSKELETAL: No joint pain, joint swelling or backache. NEUROLOGY: No tingling, numbness, vision changes or hearing loss. PSYCHIATRY: History of anxiety. No history of depression or suicidal plan or ideation. PHYSICAL EXAMINATION: GENERAL: The patient is a 74-year-old female with high body mass indexing, resting in bed in no acute respiratory distress. VITAL SIGNS: Blood pressure 135/55, heart rate 52, respirations 18, temperature 98.1 degrees 59. SKIN: Warm and dry with no active dermatosis. HEENT: The patient's head is normocephalic, atraumatic. Pupils reactive. Sclerae are nonicteric. Oral mucosa was moist. No obvious lesion. No blood noted. Nasal mucosa showed no epistaxis, septal deviation or perforation. NECK: No mass. No jugular venous distention. No lymphadenopathy or thyromegaly. LUNGS: Clear to auscultation bilaterally. HEART: S1, S2. No obvious murmurs, rubs, or gallops. ABDOMEN: Tenderness, obese, soft with active bowel sounds. No hepatomegaly or mass. Mild epigastric pain is noted. No rebound or guarding. EXTREMITIES: No cyanosis, clubbing or edema. RECTAL: Deferred. LABORATORY DATA: WBC at admission was 4.8, hemoglobin 11.5, hematocrit 35.8, MCV of 90.2, platelet count of 189. Today, hemoglobin 10.9, hematocrit 34.1, MCV of 91.4, WBC 5.4, platelet count of 182. Serum chemistry revealed today sodium of 142, potassium 3.4, chloride of 108, CO2 of 24, BUN of 8, creatinine 0.5, GFR of 98. Blood glucose one day ago was 113. Random glucose today 99, total calcium of 9.2, total bilirubin of 0.4, AST 23, ALT 18, alkaline phosphatase 113, total protein at 6.7, albumin at 3. DIAGNOSTIC DATA: CT scan of the abdomen and pelvis done with contrast one day ago showed no acute findings. Moderate-sized hiatal hernia was seen. Post cholecystectomy changes noted. Liver, spleen, adrenal glands and pancreas are unremarkable. No hydronephrosis bilaterally. No evidence of renal stone. Fecal material is seen in the colon. Normal sized retroperitoneal and mesenteric lymph nodes noted. No ascites is seen. No evidence of appendicitis. There is air-filled colon. Pelvic sidewalls are symmetric bilaterally. No free air noted. Bladder is well distended without wall thickening. IMPRESSION: * Generalized abdominal pain post colonoscopy, appeared to have resolved now. Insufflation with air can result in crampy abdominal pain at times. She has no evidence of free air or pneumatosis intestinalis, which is always of concern post endoscopic procedures. Again, the abdomen is benign on physical exam and no CT evidence of any acute process. * Chills appear to be momentary. So, transient bacteria cannot be excluded. * Diabetes mellitus. * Anxiety disorder. * Hypertension. * Morbid obesity. * CAD. * History of atrial fibrillation with tachycardia. * History of cardiac valvular insufficiency. * Fibrocystic breast disease. * Diverticulosis coli with spasm, may result in abdominal pain as above too. Again, the patient is asymptomatic now. * History of adrenal gland mass. * Diabetes mellitus. PLAN: * Advance from clear liquid diet to cardiac high-fiber diet. * Follow up on biopsies taken at EGD and polyps removal of colonoscopy. * May discharge home and advised follow up with GI for above-listed pathology in 2 weeks. * Continue Protonix therapy as ordered for at least 8 weeks. The above labs and imaging studies were discussed with the patient. The physical findings and their significance were also discussed with the patient and the condition of the upper GI mucosa and the findings of colonoscopy were also discussed with the patient again. The patient verbalizes understanding of the above and agrees with management plan as listed above. All questions were answered. Dr. Andrade, thank you for allowing me to participate in the care of this patient. TID: [id number] RECEIPT: [id number] cc: SHANNON COLE MD(User)
== END 2025-02-07 19:15 | disposition home or self-care (01) ==
LOC: EDH 11:39 → UNDOADMOB 11:40 → EDHIP 11:40 → UNDOADMOB 14:01 → 3BH 16:20 → EDHIP 16:20
PROVIDERS: ADMIT Internal Medicine; ATTEND Internal Medicine
DX: R10.9 Unspecified abdominal pain (principal); I10 Essential (primary) hypertension; I25.10 Atherosclerotic heart disease of native coronary artery without angina pectoris; E11.9 Type 2 diabetes mellitus without complications; E78.00 Pure hypercholesterolemia, unspecified; F41.9 Anxiety disorder, unspecified; E66.01 Morbid (severe) obesity due to excess calories; D64.9 Anemia, unspecified; I25.2 Old myocardial infarction; Z79.01 Long term (current) use of anticoagulants
CPT/HCPCS: 99284; 84484; 80053 ×2; 83690; 85025 ×2; 82948 ×4; 81001; 36415 ×2; 74176; 93005; G0378 ×29; J2405; J2270; Q9967

== ENCOUNTER → 2025-03-28 | Outpatient (CLI) | payer MEDICARE ==
[~2025-03-28] MED LIST changes: +CETI-89 PO; -DOCU-116 PO; -LORA10TA7 PO; -TRAM50TA4 PO
--- NOTE | 2025-03-28 16:27 | HMCIMG ---
NASAL BONES COMP 3+VWS REASON: Fracture of nasal bones, initial encounter for closed fracture TECHNIQUE: 4 views were obtained. FINDINGS: There is no evidence of fracture or dislocation. There is no joint effusion. The soft tissues appear unremarkable. There is no evidence of a radiopaque foreign body. There is osteopenia of the osseous structure. IMPRESSION: No acute findings.
== END | disposition home or self-care (01) ==
LOC: RAH 15:34
PROVIDERS: ATTEND Dermatology
DX: S02.2XXA Fracture of nasal bones, initial encounter for closed fracture (principal); M85.88 Other specified disorders of bone density and structure, other site; X58.XXXA Exposure to other specified factors, initial encounter; Y93.89 Activity, other specified; Y92.89 Other specified places as the place of occurrence of the external cause; Y99.8 Other external cause status
CPT/HCPCS: 70160